=== PATIENT | male | born 1985 | race Two or more races ===

== ENCOUNTER 2024-07-19 18:28 | Emergency (ER) | payer OTHER ==
[~2024-07-19] VITALS: Ht 165.1 cm; Wt 78.9 kg
[2024-07-19] MEDS: LABETALOL HCL 20 MG/4 ML VL IV ONE (19:15)
[2024-07-19] MEDS: SODIUM CHLORIDE 0.9% 3,000 ML IV ONE (19:15)
--- NOTE | 2024-07-19 19:25 | ED.PDOC ---
History of Present Illness HPI Comments 39 y/o M, with a Hx of DM and HTN, presents with c/o hyperglycemia and HTN w/associated lightheadedness, blurry vision, polyphagia, polydipsia, and polyuria, today. Patient endorses on gradual onset of symptoms that have been progressively worsening over the past few days in addition to noticing his blood glucose and blood pressure being elevated at home, today. Patient admits to medication noncompliance with both his DM and HTN medication (Metformin, Glipizide, Lisinopril, and HCTZ) via taking them inconsistently for the past 2 weeks and only, recently, began taking them as directed. Patient endorses on having no dizziness, weakness, nausea, vomiting, or other associated symptoms or modifiers at this time. Upon arrival to ED triage, patient had a blood glucose reading of "HI" in addition to a blood pressure of 146/120. Chief Complaint: Hyperglycemia Time Seen by MD: 18:50 Reviewed Notes: Nurses Notes, Medications, Allergies Allergies: Coded Allergies: NO KNOWN ALLERGIES (Unverified , 07/19/24) Information Source: Patient Mode of Arrival: Ambulatory Severity: Moderate Timing: Days Duration: Since onset Prehospital treatment: None Past Medical History PAST MEDICAL HISTORY: DM, HTN Surgical History: Denies all surgeries Family History Family History: No family hx of Cancer, No family hx of Heart evelyne, No family hx of HTN, No family hx ofKidney evelyne, No family hx of Liver evelyne, No family hx of Lung evelyne, No family hx of Stroke, Family hx of DM Social History Smoker: Non-Smoker Alcohol: Occasionally Drugs: Denies Drug Use Lives In: Home Constitutional: denies: chills, diaphoresis, fatigue, fever, malaise, sweats, weakness, others EENTM: reports: blurred vision; denies: double vision, ear bleeding, ear discharge, ear drainage, ear pain, ear ringing, eye pain, eye redness, hearing loss, mouth pain, mouth swelling, nasal discharge, nose bleeding, nose congestion, nose pain, photophobia, tearing, throat pain, throat swelling, voice changes, others Respiratory: denies: cough, hemoptysis, orthopnea, SOB at rest, shortness of breath, SOB with excertion, stridor, wheezing, others Cardiovascular: reports: lightheadedness; denies: chest pain, dizzy spells, diaphoresis, Dyspnea on exertion, edema, irregular heart beat, left arm pain, palpitations, PND, syncope, others Gastrointestinal: denies: abdomen distended, abdominal pain, blood streaked bowels, constipated, diarrhea, dysphagia, difficulty swallowing, hematemesis, melena, nausea, poor appetite, poor fluid intake, rectal bleeding, rectal pain, vomiting, others Genitourinary: denies: burning, dysuria, flank pain, frequency, hematuria, incontinence, penile discharge, penile sore, pain, testicle pain, testicle swelling, urgency, others Neurological: denies: dizziness, fainting, headache, left sided numbness, left sided weakness, numbness, paresthesia, pre-existing deficit, right sided numbness, right sided weakness, seizure, speech problems, tingling, tremors, weakness, others Musculoskeletal: denies: back pain, gout, joint pain, joint swelling, muscle pain, muscle stiffness, neck pain, others Integumetry: denies: bruises, change in color, change in hair/nails, dryness, laceration, lesions, lumps, rash, wounds, others Allergic/Immunocompromised: denies: Difficulty Healing, Frequent Infections, Hives, Itching, others Hematologic/Lymphatic: reports: others (HTN); denies: anemia, blood clots, easy bleeding, easy bruising, swollen glands Endocrine: reports: excessive hunger, excessive thirst, excessive urination, others (hyperglycemia ); denies: excessive sweating, flushing, intolerance to cold, intolerance to heat, unexplained weight gain, unexplained weight loss Psychiatric: denies: anxiety, bipolar disorder, depression, hopeless, panic disorder, schizophrenia, sleepless, suicidal, others All Other Systems: Reviewed and Negative Physical Exam General Appearance: Mild Distress, Normal HEENT: Normal ENT Inspection, Pharynx Normal, TMs Normal, Other (dry lips) Neck: Full Range of Motion, Non-Tender, Normal, Normal Inspection Respiratory: Chest Non-Tender, Lungs Clear, No Accessory Muscle Use, No Respiratory Distress, Normal Breath Sounds Cardiovascular: No Edema, No JVD, No Murmur, No Gallop, Normal Peripheral Pulses, Regular Rate/Rhythm Breast Exam: Deferred Gastrointestinal: No Organomegaly, Non Tender, No Pulsatile Mass, Normal Bowel Sounds, Soft Genitalia: Deferred Pelvic: Deferred Rectal: Deferred Extremities: No calf tenderness, Normal capillary refill, Normal inspection, Normal range of motion, Non-tender, No pedal edema Musculoskeletal : Apperance: Normal Neurologic: Alert, head kiln operator II-XII nml as Tested, No Motor Deficits, Normal Affect, Normal Mood, No Sensory Deficits Cerebellar Function: Normal Reflexes: Normal Skin: Dry, Normal Color, Warm Lymphatic: No Adenopathy Was a procedure done? Was a procedure done?: No Differential Dx Considerations may include: DKA, hyperglycemia, HTN emergency, DM uncontrolled, HTN uncontrolled, medication non-compliancy X-Ray, Labs, Meds, VS Vital Signs Date Time Temp Pulse Resp B/P (MAP) Pulse Ox O2 Delivery O2 Flow Rate FiO2 07/19/24 18:51 98.0 137 18 146/120 (129) 97 Lab Test 07/19/24 20:10 07/19/24 18:49 Range/Units White Blood Count 9.6 4.4-10.8 10^3/uL Red Blood Count 5.99 H 4.5-5.90 10^6/uL Hemoglobin 17.9 H 13.5-17.5 g/dL Hematocrit 50.7 41.0-53.0 % Mean Corpuscular Volume 84.6 80.0-100.0 fL Mean Corpuscular Hemoglobin 29.9 28.0-32.0 pg Mean Corpuscular Hemoglobin Concent 35.4 32.0-36.0 g/dL Red Cell Distribution Width 12.7 11.8-14.3 % Platelet Count 258 140-450 10^3/uL Mean Platelet Volume 8.4 6.9-10.8 fL Neutrophils (%) (Auto) 51.5 37.0-80.0 % Lymphocytes (%) (Auto) 41.3 10.0-50.0 % Monocytes (%) (Auto) 5.0 0.0-12.0 % Eosinophils (%) (Auto) 1.6 0.0-7.0 % Basophils (%) (Auto) 0.6 0.0-2.0 % Neutrophils # (Auto) 4.9 1.6-8.6 10 ^3/uL Lymphocytes # (Auto) 4.0 0.4-5.4 10 ^3/uL Monocytes # (Auto) 0.5 0-1.3 10 ^3/uL Eosinophils # (Auto) 0.1 0-0.8 10 ^3/uL Basophils # (Auto) 0.1 0-0.2 10 ^3/uL Nucleated Red Blood Cells 0.2 % Sodium Level 130 L 136-145 mmol/L Potassium Level 4.5 3.5-5.1 mmol/L Chloride Level 94 L 98-107 mmol/L Carbon Dioxide Level 28 20-31 mmol/L Anion Gap 8 5-15 Blood Urea Nitrogen 21 9-23 mg/dL Creatinine 1.86 H 0.700-1.30 mg/dL Glomerular Filtration Rate Calc 47 >90 mL/min BUN/Creatinine Ratio 11.3 10.0-20.0 Serum Glucose 661 *H 74-106 mg/dL Lactic Acid Level 1.9 0.4-2.0 mmol/L Calcium Level 11.7 H 8.7-10.4 mg/dL Total Bilirubin 1.2 H 0.2-1.0 mg/dL Aspartate Amino Transferase (AST) 30 13-40 U/L Alanine Aminotransferase (ALT) 93 H 7-40 U/L Alkaline Phosphatase 98 46-116 U/L Troponin I High Sensitivity 8 </=54 ng/L Total Protein 7.7 5.7-8.2 g/dL Albumin 4.7 3.2-4.8 g/dL Beta-Hydroxybutyric Acid 0.892 H < 0.4 mmol/L POC Glucose > 600 *H 70-106 mg/dl Lactic acid is 1.9. Beta hydroxybutyric acid is 0.9 which is elevated. Glucose is 600. This CO2 is 28. The patient appears not to be in DKA but appears to be severely dehydrated with a creatinine 1.9. His blood pressure is 146/120. Labetalol 20 mg IV was administered. Insulin regular 20 units IV was administered Who will admit the patient to the hospitalist for further evaluation and care. Time of 1ST Reevaluation: 19:20 Reevaluation 1ST: Unchanged Patient Education/Counseling: Diagnosis, Treatment Family Education/Counseling: No Family Present Departure 1 Departure Time of Disposition: 21:11 Impression: Primary Impression: Poorly controlled diabetes mellitus Additional Impressions: Hypertensive urgency Dehydration Acute kidney injury Disposition: ADMITTED INPATIENT Admit to: Tele Condition: Guarded Critical Care Note Critical Care Time?: Yes (45 min-critical care time only) Stability Stability form required: No Heart Score Heart Score: Heart Score Response (Comments) Value History N/A 0 EKG N/A 0 Age N/A 0 Risk Factors N/A 0 Troponin N/A 0 Total 0 I personally scribed for TATYANA PETERSON MD ([email or web address]) on 07/19/24 at 19:25. Electronically submitted by Bhavesh Tejeda ([email or web address]). TATYANA PETERSON MD Jul 19, 2024 19:25
[2024-07-19 20:31] LABS: Basophils # (auto) 0.1 10 ^3/uL (0-0.2); Eosinophils # (auto) 0.1 10 ^3/uL (0-0.8); Hemoglobin 17.9 g/dL (13.5-17.5); Monocytes # (auto) 0.5 10 ^3/uL (0-1.3); Neutrophils # (auto) 4.9 10 ^3/uL (1.6-8.6); Red Cell Distribution Width 12.7 % (11.8-14.3)
[2024-07-19 20:32] LABS: Basophils % (auto) 0.6 % (0.0-2.0); Eosinophils % (auto) 1.6 % (0.0-7.0); Hematocrit 50.7 % (41.0-53.0); Lymphocytes % (auto) 41.3 % (10.0-50.0); Mean Corpuscular Hemoglobin 29.9 pg (28.0-32.0); Mean Corpuscular Hgb Conc. 35.4 g/dL (32.0-36.0); Mean Corpuscular Volume 84.6 fL (80.0-100.0); Neutrophils % (auto) 51.5 % (37.0-80.0); Nucleated Red Blood Cells % 0.2 %; Platelet Count (auto) 258 10^3/uL (140-450); Red Blood Cells 5.99 10^6/uL (4.5-5.90); White Blood Cell 9.6 10^3/uL (4.4-10.8)
[2024-07-19 20:48] LABS: Alanine Aminotransferase 93 U/L (7-40); Albumin 4.7 g/dL (3.2-4.8); Alkaline Phosphatase 98 U/L (46-116); Anion Gap 8 (5-15); BUN/Creatinine Ratio 11.3 (10.0-20.0); Bilirubin, Total 1.2 mg/dL (0.2-1.0); Blood Urea Nitrogen 21 mg/dL (9-23); Calcium 11.7 mg/dL (8.7-10.4); Carbon Dioxide 28 mmol/L (20-31); Chloride 94 mmol/L (98-107); Potassium 4.5 mmol/L (3.5-5.1); Sodium 130 mmol/L (136-145); Total Protein 7.7 g/dL (5.7-8.2)
[2024-07-19 20:50] LABS: Glucose 661 mg/dL (74-106)
[2024-07-19 21:03] LABS: Aspartate Aminotransferase 30 U/L (13-40)
[2024-07-19] MEDS: InsuLIN REG 1unit/0.01ml Soln (100units/ml) IV ONE (22:12)
[2024-07-20 01:22] VITALS: BP 119/77; PULSE 85; RESP 18; TEMP 98; O2SAT 94
[2024-07-20 01:47] LABS: Urine Bacteria None Seen /hpf (None Seen)
[2024-07-20 01:59] LABS: Urine Blood Negative /uL (Negative); Urine Clarity Clear (Clear); Urine Color Light-Yellow (Yellow); Urine Protein, UAD Negative (Negative); Urine Specific Gravity 1.031 (1.001-1.035); Urine Urobilinogen Normal (Negative); Urine WBC 1 /hpf (0 - 3)
== END 2024-07-20 01:39 | disposition short-term general hospital (02) ==
LOC: ER 18:28
DX: E11.65 Type 2 diabetes mellitus with hyperglycemia (principal); I16.0 Hypertensive urgency; E86.0 Dehydration; N17.9 Acute kidney failure, unspecified
CPT/HCPCS: 36415; 80053; 81001; 82010; 82962; 83605; 84484; 85025; 96361; 96374; 99285; J1815; J7030